=== PATIENT | female | born 1990 | race Caucasian/White ===

== ENCOUNTER 2017-07-12 17:49 | Emergency (ER) | payer OTHER, MEDICAID ==
[~2017-07-12 17:49] MED LIST: GUAI100S6 PO; ZITH250T PO
[2017-07-12 17:50] VITALS: BP 119/66; PULSE 76; RESP 16; TEMP 98.5; O2SAT 100
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
[2017-07-12] MEDS ORDERED: ROBA750T PO (18:22)
[2017-07-12] MEDS ORDERED: IBUP-232 PO (18:22)
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
== END 2017-07-12 19:49 | disposition home or self-care (01) ==
LOC: NEPK 17:49
DX: S16.1XXA Strain of muscle, fascia and tendon at neck level, initial encounter (principal); V43.52XA Car driver injured in collision with other type car in traffic accident, initial encounter; Y92.410 Unspecified street and highway as the place of occurrence of the external cause
CPT/HCPCS: 72125; 99284